=== PATIENT | female | born 1995 | race Caucasian/White ===

== ENCOUNTER 2016-11-20 19:43 | Emergency (ER) | payer OTHER ==
[~2016-11-20] VITALS: Ht 175.3 cm; Wt 70.0 kg
[~2016-11-20 19:43] MED LIST: FLUO-191 PO; MULT-950 PO
[2016-11-20] MEDS ORDERED: HYDROCODONE/ACETAMINOPHEN 5-325 MG TABLET PO ONE (21:45)
[2016-11-20] MEDS ORDERED: CEPHALEXIN MONOHYDRATE 500 MG CAPSULE PO ONE (21:45)
[2016-11-20 21:57] VITALS: BP 124/66
== END 2016-11-20 22:10 | disposition home or self-care (01) ==
LOC: EMS 19:44
DX: J02.9 Acute pharyngitis, unspecified (principal); F41.9 Anxiety disorder, unspecified; F32.9 Major depressive disorder, single episode, unspecified
CPT/HCPCS: 99283

== ENCOUNTER 2017-02-04 08:19 | Emergency (ER) | payer OTHER ==
[~2017-02-04] VITALS: Ht 175.3 cm; Wt 70.5 kg
[2017-02-04] MEDS ORDERED: DEXAMETHASONE SOD PHOS 4 MG/ML VIAL IM ONE (09:45)
[2017-02-04] MEDS ORDERED: PENICILLIN G BENZATHINE LA 1,200,000 UNITS/2 ML SYRINGE IM ONE (09:45)
[2017-02-04 10:18] VITALS: BP 139/86
== END 2017-02-04 10:53 | disposition home or self-care (01) ==
LOC: EMS 08:21
DX: J02.9 Acute pharyngitis, unspecified (principal); R11.10 Vomiting, unspecified
CPT/HCPCS: 96372; 99284; J0561; J1100

== ENCOUNTER 2017-07-08 11:30 | Emergency (ER) | payer OTHER ==
[~2017-07-08] VITALS: Ht 175.3 cm; Wt 76.4 kg
[2017-07-08 11:31] VITALS: BP 123/74
== END 2017-07-08 12:50 | disposition left against medical advice (07) ==
LOC: EMS 11:36
DX: H57.10 Ocular pain, unspecified eye (principal); Z53.21 Procedure and treatment not carried out due to patient leaving prior to being seen by health care provider